=== PATIENT | female | born 1990 | race Caucasian/White ===

== ENCOUNTER 2022-04-02 13:25 | Emergency (ER) | payer OTHER, SELFPAY ==
[2022-04-02 13:38] VITALS: BP 123/86; PULSE 83; RESP 20; TEMP 36.6; O2SAT 100
--- NOTE | 2022-04-02 14:53 | ED.SKABFB ---
HPI - Skin/Abscess/Foreign Bdy General Chief complaint: Skin/Abscess/Foreign Body Stated complaint: spot on back headache shoulders ache Time Seen by Provider: 04/02/22 14:50 Source: patient and RN notes reviewed Mode of arrival: ambulatory Limitations: dementia History of Present Illness HPI narrative: 31-year-old female presents concern for a red raised painful area on her back. She reports she feels like this area is also giving her headache and other areas of her skin to be painful. She reports a history of having similar type of infection on her, she denies ever having to have drained MD complaint: other (Redness) Related Data Home Medications Medication Instructions Recorded Confirmed metronidazole 500 mg tablet mg 04/02/22 Allergies Allergy/AdvReac Type Severity Reaction Status Date / Time ketorolac [From Toradol] Allergy Headache Verified 04/02/22 13:40 Review of Systems Review of Systems: CONSTITUTIONAL: Denies malaise, chills, sweats, or fever. EYES: Denies redness, or discharge. CARDIOVASCULAR: Denies chest pain, palpitations, or edema. RESPIRATORY: Denies cough or dyspnea. GASTROINTESTINAL: Denies abdominal pain, nausea, vomiting SKIN: Reports at area of redness, swelling and tenderness to her upper mid back. Denies purulent drainage, vesicles, bullae, numbness, pain beyond proportion MUSCULOSKELETAL: Denies joint pain or myalgia. NEUROLOGIC: Denies headache. All systems reviewed & are unremarkable except as noted in HPI and below PMFSH Comments At time of signature, agree with nursing past medical, surgical, social and family history. There is no relevant family history pertinent to the presenting complaint Exam Narrative: GENERAL: Well-appearing, well-nourished, and in no acute distress. HEAD: Normocephalic, atraumatic. EYES: PERRLA, conjunctivae clear ENT: Mucous membranes moist. NECK: Supple. No lymphadenopathy CHEST: Clear to auscultation. No respiratory distress. HEART: Regular rate and rhythm. SKIN: Warm, dry. 3 cm x 3 cm slightly raised and indurated area of redness with sharp margins to the mid upper back without any fluctuation, evidence drainage. No vesicles, bullae, necrosis, ecchymosis, crepitus noted. NEURO: Alert and oriented x3. PSYCH: Normal mood and affect Course Course Emergency Course: Patient is aware of diagnosis, understands and agrees to treatment plan. Anticipatory guidance given. Patient agrees to follow-up as directed and is aware of reasons to seek care at the emergency department. Portions of this record may have been created with voice recognition software Level of Care: Express Care Visit Vital Signs Vital signs: Vital Signs Temperature 97.8 F 04/02/22 13:38 Pulse Rate 83 04/02/22 13:38 Respiratory Rate 20 04/02/22 13:38 Blood Pressure 123/86 04/02/22 13:38 Pulse Oximetry 100 04/02/22 13:38 Oxygen Delivery Room Air 04/02/22 13:38 Temperature 97.8 F 04/02/22 13:38 Pulse Rate 83 04/02/22 13:38 Respiratory Rate 20 04/02/22 13:38 Blood Pressure 123/86 04/02/22 13:38 Pulse Oximetry 100 04/02/22 13:38 Oxygen Delivery Room Air 04/02/22 13:38 Reviewed. MDM - Skin/Abscess/Foreign Bdy MDM Narrative Medical decision making narrative: Does not appear at this time to be erythema multiforme, bullous, SJS, TEN; no evidence at this time to suggest RMSF, NSTI, endocarditis or Lyme disease; patient looks well, nontoxic and is tolerating oral intake; no neurologic signs or symptoms; no headache, photophobia or neck pain; afebrile. Patient does not have history of of penetrating trauma, laceration, blunt trauma, recent surgery, immunosuppression, malignancy, obesity, alcoholism, corticosteroid use. Discussed the importance of follow-up, patient agrees; question, cellulitis versus necrotizing soft tissue infection versus abscess. Critical Care Time Critical Care Time Critical Care Time: No Discharge Plan Discharge Cli
== END 2022-04-02 15:03 | disposition home or self-care (01) ==
PROVIDERS: Emergency Provider Nurse Practitioner; PCP Internal Medicine
DX: L03.312 Cellulitis of back [any part except buttock and flank] (principal)
CPT/HCPCS: 99203; G0463